=== PATIENT | male | born 1990 | race African-American/Black ===

== ENCOUNTER 2023-01-08 05:34 | Emergency (ER) | payer MEDICAID ==
[~2023-01-08] VITALS: Ht 157.5 cm; Wt 66.0 kg
[2023-01-08 05:44] VITALS: O2SAT 100
[2023-01-08] MEDS ORDERED: AMOX1TAB16 MT (08:34)
[2023-01-08] MEDS ORDERED: NAPR220C61 MT (08:34)
[2023-01-08 09:27] VITALS: BP 130/80; PULSE 83; RESP 16; TEMP 98.9
== END 2023-01-08 09:27 | disposition home or self-care (01) ==
LOC: ER 05:34
DX: K04.7 Periapical abscess without sinus (principal)
CPT/HCPCS: 99283